=== PATIENT | female | born 1945 | race Caucasian/White ===

== ENCOUNTER 2019-06-12 10:55 | Emergency (ER) | payer MEDICARE ==
[2019-06-12] MEDS ORDERED: HYDROcod/ACETAM 5/325 MG TABLET PO STA (12:12)
[2019-06-12] MEDS ORDERED: ONDANSETRON ODT 4 MG TABLET TL STA (12:12)
--- NOTE | 2019-06-12 12:14 | ED Physician Documentation ---
PD HPI MAJOR TRAUMA - Stated complaint Stated Complaint: FALL - Chief complaint Chief Complaint: Trauma Ch/Bk - History obtained from History obtained from: Patient - History of Present Illness Mechanism of injury: Fell (This is a very pleasant 73-year-old woman with history of multiple areas of osteoarthritis, lumbar spine surgery, knee replacement. 6 days ago she fell and hit her tailbone on the bottom of the bathroom tub. She has no other injuries. Although she says she hit her head but she denies any new headaches, she has chronic headaches but they are not any worse than usual. She also has chronic vertigo not any worse than usual. Pain is worsening and severe in the tailbone. She denies weakness, numbness, tingling, saddle anesthesia or incontinence.) Review of Systems Constitutional: denies: Fever, Chills Throat: denies: Dental pain / toothache, Sore throat Cardiac: denies: Chest pain / pressure, Palpitations Respiratory: denies: Dyspnea PD PAST MEDICAL HISTORY - Present Medications Home Medications: Ambulatory Orders Medication Instructions Recorded Confirmed Hydrocodone/Acetaminophen 1 - 2 each PO Q6H PRN #20 tablet 06/12/19 [Hydrocodon-Acetaminophen 5-325] Ondansetron Odt [Zofran] 4 mg TL Q6H PRN #20 tablet 06/12/19 - Allergies Allergies/Adverse Reactions: Allergies Allergy/AdvReac Type Severity Reaction Status Date / Time opiod AdvReac Nausea Uncoded 06/12/19 11:07 PD ED PE NORMAL - Vitals Vital signs reviewed: Yes - General General: Alert and oriented X 3, Other (She appears uncomfortable, winces with any motion) - Neck Neck: Other (She does have mild neck tenderness in the midline without limited range of motion) - Abdomen Abdomen: Non tender - Back Back: Other (She is tender over the sacrum without obvious deformity, the thoracic and lumbar spines are nontender. The patient has equal and normal Achilles and patellar reflexes bilaterally. Normal sensation in all areas of the legs. Patient denies saddle anesthesia. Normal strength in flexion- extension at the ankles, knees, and flexion of the hips.) - Neuro Neuro: Alert and oriented X 3, Normal speech Results - Vitals Vitals: Vital Signs - 24 hr 06/12/19 11:01 Temperature 37 C Heart Rate 86 Respiratory 16 Rate Blood Pressure 109/48 L O2 Saturation 96 Oxygen O2 Source Room air - Rads (name of study) CT of the cervical spine without the administration of IV contrast Radiology: EMP read contemporaneously (Degenerative changes without fracture) X-ray of the sacrum and coccyx Radiology: EMP read contemporaneously (Degenerative changes without fracture) PD MEDICAL DECISION MAKING - ED course ED course: 73-year-old woman with prominent sacral pain but also some neck tenderness after a fall subacutely. X-rays were negative for acute findings. She has a sensitivity to opioids with a side effect of nausea but did well with hydrocodone after Zofran here. Departure - Departure Disposition: 01 Home, Self Care Clinical Impression: Sacral contusion Qualifiers: Encounter type: initial encounter Qualified Code(s): S30.0XXA - Contusion of lower back and pelvis, initial encounter Fall in bathtub Qualifiers: Encounter type: initial encounter Qualified Code(s): W18.2XXA - Fall in (into) shower or empty bathtub, initial encounter Neck strain Qualifiers: Encounter type: initial encounter Qualified Code(s): S16.1XXA - Strain of muscle, fascia and tendon at neck level, initial encounter Condition: Good Record reviewed to determine appropriate education?: Yes Instructions: ED Sprain Strain Neck, ED Contusion Back Prescriptions: Hydrocodone/Acetaminophen [Hydrocodon-Acetaminophen 5-325] 1 - 2 each PO Q6H PRN #20 tablet PRN Reason: pain Ondansetron Odt [Zofran] 4 mg TL Q6H PRN #20 tablet PRN Reason: Nausea / Vomiting Comments: Your CAT scan of the cervical spine and x-rays of the sacrum were negative for fractures. It is not impossible that there is a tiny fracture of the sacrum, that said no specific treatment is necessary other than pain control and general rest. Return for new or worsening symptoms. Follow-up with your doctor in a week if not improving. Do not drink or drive while taking narcotic pain medication. Note that many narcotic pain relievers also contain Tylenol/acetaminophen. Please ensure that your total dose of acetaminophen from all sources does not exceed 3 g (3000 mg) per day. You may get constipated while on this medication. Take a stool softener such as Colace twice a day while you are on it. Also add an [id number] laxative such as senna or MiraLAX on any day that you do not have a bowel movement. If you received a narcotic pain medication or sedative while in the emergency department, do not drive for the next 24 hours.
--- NOTE | 2019-06-12 12:59 | CT Report ---
Reason: neck pain fall Procedure Date: 06/12/2019 Accession Number: [id number] / [id number] Procedure: CT - CERVICAL SPINE WO CPT Code: Final Report FULL RESULT: EXAM: CT CERVICAL SPINE WITHOUT CONTRAST DATE: 06/12/2019 12:41 PM. HISTORY: Neck pain fall. COMPARISONS: None. TECHNIQUE: Thin-section axial images were acquired of the cervical spine without contrast. Post-processing: Coronal and sagittal reformats. Other: None. In accordance with CT protocol optimization, one or more of the following dose reduction techniques were utilized for this exam: automated exposure control, adjustment of mA and/or KV based on patient size, or use of iterative reconstructive technique. FINDINGS: Alignment: No scoliosis or spondylolisthesis. Bones: No fracture or bone lesion. Interspace Levels/Facets: C1-C2: Unremarkable. C2-C3: Unremarkable. C3-C4: Unremarkable. C4-C5: Disk space narrowing and uncovertebral spurring C5-C6: Disk space narrowing and uncovertebral spurring C6-C7: Disk space narrowing and uncovertebral spurring C7-T1: Left facet joint arthropathy. Musculature: Normal. Other: The paravertebral and prevertebral soft tissues are unremarkable. IMPRESSION: Degenerative change cervical spine CT without superimposed acute fracture, acute malalignment, or prevertebral soft tissue swelling.. RADIA
--- NOTE | 2019-06-12 13:54 | XRAY Report ---
Reason: back pain fall Procedure Date: 06/12/2019 Accession Number: [id number] / [id number] Procedure: XR - Sacrum/Coccyx CPT Code: Final Report FULL RESULT: EXAM: SACRUM AND COCCYX RADIOGRAPHY 3 VIEWS EXAM DATE: 06/12/2019. HISTORY: Back pain. Fell. COMPARISONS: None. TECHNIQUE: AP, angulated AP, and lateral views. FINDINGS: Alignment: Normal. The sacrum and coccyx are normally aligned. Bones: Normal. No fracture or bone lesion. Joints: Mild narrowing and sclerosis of the sacroiliac joints. Moderate L4-L5 and L5-S1 disk narrowing. Soft Tissues: Normal. IMPRESSION: Normal examination of the sacrum and coccyx. Degenerative changes of the sacroiliac joints and the lower lumbar spine. RADIA
[2019-06-12 14:19] VITALS: BP 149/75
== END 2019-06-12 14:19 | disposition home or self-care (01) ==
LOC: ED 10:55
DX: S30.0XXA Contusion of lower back and pelvis, initial encounter (principal); S16.1XXA Strain of muscle, fascia and tendon at neck level, initial encounter; W18.2XXA Fall in (into) shower or empty bathtub, initial encounter; Y92.002 Bathroom of unspecified non-institutional (private) residence as the place of occurrence of the external cause; Z91.81 History of falling; M50.30 Other cervical disc degeneration, unspecified cervical region; M48.02 Spinal stenosis, cervical region; M53.3 Sacrococcygeal disorders, not elsewhere classified; M48.08 Spinal stenosis, sacral and sacrococcygeal region; M51.36 Other intervertebral disc degeneration, lumbar region; M48.061 Spinal stenosis, lumbar region without neurogenic claudication; M89.49 Other hypertrophic osteoarthropathy, multiple sites; Z96.659 Presence of unspecified artificial knee joint; Z88.5 Allergy status to narcotic agent
CPT/HCPCS: 72125; 72220; 99282; 99284; A9270; Q0162

== ENCOUNTER 2019-06-27 09:31 | Outpatient (CLI) | payer MEDICARE, MEDICAID ==
[2019-06-27 17:11] LABS: BASOPHILS % (AUTO) 0.8 %; EOSINOPHILS # (AUTO) 0.2 10^3/uL (0.0-0.7); HGB - HEMOGLOBIN 14.5 g/dL (12.0-16.0); LYMPHOCYTES # (AUTO) 1.2 10^3/uL (1.5-3.5); LYMPHOCYTES % (AUTO) 24.9 %; MEAN CORPUSCULAR HEMOGLOBIN 30.4 pg (27.0-31.0); MEAN CORPUSCULAR HGB CONC 32.4 g/dL (32.0-36.0); MEAN CORPUSCULAR VOLUME 93.7 fL (81.0-99.0); MEAN PLATELET VOLUME 11.4 fL (7.9-10.8); MONOCYTES # (AUTO) 0.4 10^3/uL (0.0-1.0); MONOCYTES % (AUTO) 8.2 %; NEUTROPHILS # (AUTO) 3.1 10^3/uL (1.5-6.6); NEUTROPHILS % (AUTO) 62.9 %; PLT - PLATELET COUNT 281 10^3/uL (130-450); RED BLOOD COUNT 4.77 10^6/uL (4.20-5.40)
[2019-06-27 17:25] LABS: ALBUMIN 3.9 g/dL (3.2-5.5); ALBUMIN/GLOBULIN RATIO 1.4 (1.0-2.2); BILIRUBIN,TOTAL 0.8 mg/dL (0.2-1.0); CALCIUM 9.1 mg/dL (8.5-10.3); TOTAL PROTEIN 6.7 g/dL (6.7-8.2)
== END 2019-06-27 09:32 | disposition home or self-care (01) ==
LOC: LAB.S 09:31
PROVIDERS: ATTEND Registered Nurse
DX: G43.909 Migraine, unspecified, not intractable, without status migrainosus (principal); M79.7 Fibromyalgia; R42 Dizziness and giddiness; F32.9 Major depressive disorder, single episode, unspecified
CPT/HCPCS: 36415; 80053; 80061; 83721; 84443; 85025

== ENCOUNTER 2019-07-13 17:16 | Outpatient (CLI) | payer MEDICARE, MEDICAID | END 2019-07-13 17:17 | disposition home or self-care (01) | LOC: COV 17:16 | PROVIDERS: ATTEND Family Medicine | DX: R05 Cough (principal) | CPT/HCPCS: 81599 ==

== ENCOUNTER 2019-10-02 16:16 | Outpatient (CLI) | payer MEDICARE, MEDICAID | END 2019-10-02 16:17 | disposition critical access hospital (66) | LOC: EMS 16:16 | PROVIDERS: ATTEND Surgery | DX: R51 Headache (principal); R11.2 Nausea with vomiting, unspecified | CPT/HCPCS: A0425; A0427 ==

== ENCOUNTER 2019-10-02 16:40 | Emergency (ER) | payer MEDICARE, MEDICAID ==
[2019-10-02] MEDS ORDERED: METOCLOPRAMIDE 10 MG/2 ML VIAL IVP STA (17:00)
[2019-10-02] MEDS ORDERED: diphenhydrAMINE INJ 50 MG/ML VIAL IVP STA (17:01)
--- NOTE | 2019-10-02 17:01 | ED Physician Documentation ---
PD HPI HEADACHE - Stated complaint Stated Complaint: VOMITING - Chief complaint Chief Complaint: Neuro - History obtained from History obtained from: Patient, Family, EMS - History of Present Illness Timing - onset: Yesterday (73-year-old woman with history of fibromyalgia, chronic vertigo, and migraines. She developed severe migraine yesterday noting that she has migraines often. It is caused her to vomit and be very light and sound sensitive.) Review of Systems Constitutional: denies: Fever, Chills Nose: denies: Rhinorrhea / runny nose Cardiac: denies: Chest pain / pressure, Palpitations Respiratory: denies: Dyspnea, Cough GI: reports: Nausea, Vomiting. denies: Abdominal Pain PD PAST MEDICAL HISTORY - Past Medical History Cardiovascular: None Respiratory: None Neuro: Migraines Endocrine/Autoimmune: None GI: GERD NUCLEAR CONTROL ROOM OPERATOR: None : Kidney stones HEENT: None Psych: Depression, Anxiety Musculoskeletal: Osteoarthritis Derm: None - Past Surgical History General: Cholecystectomy, Appendectomy Ortho: Knee replacement, Shoulder arthroplasty /NUCLEAR CONTROL ROOM OPERATOR: Tubal ligation, Hysterectomy, Oophrectomy - Present Medications Home Medications: Ambulatory Orders Medication Instructions Recorded Confirmed Hydrocodone/Acetaminophen 1 - 2 each PO Q6H PRN #20 tablet 06/12/19 [Hydrocodon-Acetaminophen 5-325] Ondansetron Odt [Zofran] 4 mg TL Q6H PRN #20 tablet 06/12/19 Metoclopramide [Reglan] 10 mg PO Q6H PRN #20 tablet 10/02/19 SUMAtriptan [Imitrex] 25 mg PO BID PRN #10 tablet 10/02/19 - Allergies Allergies/Adverse Reactions: Allergies Allergy/AdvReac Type Severity Reaction Status Date / Time opiod AdvReac Nausea Uncoded 06/12/19 11:07 - Social History Does the pt smoke?: No Smoking Status: Never smoker Does the pt drink ETOH?: No Does the pt have substance abuse?: Yes - Immunizations Immunizations are current?: Yes - POLST Patient has POLST: No PD ED PE NORMAL - Vitals Vital signs reviewed: Yes - General General: Alert and oriented X 3, Other (She appears uncomfortable and is holding a wet washcloth over her head and retching) - Neck Neck: Supple, no meningeal sign, No bony TTP - Neuro Neuro: Alert and oriented X 3, No motor deficit, No sensory deficit, Normal speech Results - Vitals Vitals: Vital Signs - 24 hr 10/02/19 16:52 Temperature 2.6 C L Heart Rate 88 Respiratory 20 Rate Blood Pressure 177/92 H O2 Saturation 99 Oxygen O2 Source Room air PD MEDICAL DECISION MAKING - ED course ED course: 73-year-old woman presents with an acute exacerbation of a chronic headache. She was treated here with Reglan and Benadryl with excellent relief of both her headache and nausea. Departure - Departure Disposition: 01 Home, Self Care Clinical Impression: Migraine Qualifiers: Migraine type: without aura Status migrainosus presence: with status migrainosus Intractability: not intractable Qualified Code(s): G43.001 - Migraine without aura, not intractable, with status migrainosus Condition: Good Record reviewed to determine appropriate education?: Yes Instructions: ED Headache Migraine Prescriptions: SUMAtriptan [Imitrex] 25 mg PO BID PRN #10 tablet PRN Reason: Headache Metoclopramide [Reglan] 10 mg PO Q6H PRN #20 tablet PRN Reason: nausea or headache Comments: Call your doctor to arrange a follow-up appointment, make the next available appointment. In the interim, return anytime if worse or if new symptoms develop.
[2019-10-02 20:21] VITALS: BP 166/75
== END 2019-10-02 17:45 | disposition home or self-care (01) ==
LOC: EDUNIT# → ED 16:40
DX: G43.001 Migraine without aura, not intractable, with status migrainosus (principal); R11.2 Nausea with vomiting, unspecified
CPT/HCPCS: 99283; J1200; J2765

== ENCOUNTER 2019-10-19 10:29 | Outpatient (CLI) | payer MEDICARE, MEDICAID ==
[2019-10-19 15:35] LABS: ALBUMIN 4.5 g/dL (3.2-5.5); ALBUMIN/GLOBULIN RATIO 1.3 (1.0-2.2); ALKALINE PHOSPHATASE 159 IU/L (42-121); ALT ALANINE AMINOTRANSFERASE 27 IU/L (10-60); AST ASPARTATE AMINOTRANSFERASE 26 IU/L (10-42); BILIRUBIN,TOTAL 1.2 mg/dL (0.2-1.0); BUN - BLOOD UREA NITROGEN 20 mg/dL (6-20); CALCIUM 9.4 mg/dL (8.5-10.3); CARBON DIOXIDE - CO2 24 mmol/L (21-32); CHLORIDE 104 mmol/L (101-111); CREATININE 1.1 mg/dL (0.4-1.0); GLUCOSE 115 mg/dL (70-100); HB2 TOTAL 16.2 g/dL; HEMOGLOBIN A1C 0.64 g/dL; HEMOGLOBIN A1C % 5.8 % (4.6-6.2); SODIUM 136 mmol/L (135-145); TOTAL PROTEIN 7.9 g/dL (6.7-8.2)
[2019-10-19 16:31] LABS: CRP - C-REACTIVE PROTEIN < 1.0 mg/dL (0-1.0)
== END 2019-10-19 10:30 | disposition home or self-care (01) ==
LOC: LAB.S 10:29
PROVIDERS: ATTEND Registered Nurse
DX: G43.909 Migraine, unspecified, not intractable, without status migrainosus (principal); R42 Dizziness and giddiness; M79.7 Fibromyalgia; F32.9 Major depressive disorder, single episode, unspecified; R41.3 Other amnesia; R73.9 Hyperglycemia, unspecified; K14.6 Glossodynia
CPT/HCPCS: 36415; 80053; 83036; 85651; 86038; 86140

== ENCOUNTER 2020-01-24 12:54 | Outpatient (CLI) | payer MEDICAID, MEDICARE ==
[2020-01-24 17:07] LABS: FOLATE > 49.60 ng/mL (5.90 - >24.8)
== END 2020-01-24 12:55 | disposition home or self-care (01) ==
LOC: LAB.S 12:54
PROVIDERS: ATTEND Psychiatry & Neurology Psychiatry
DX: F33.1 Major depressive disorder, recurrent, moderate (principal); F43.10 Post-traumatic stress disorder, unspecified
CPT/HCPCS: 36415; 82607; 82746; 83090